=== PATIENT | male | born 1960 | race Caucasian/White ===

== ENCOUNTER 2018-04-09 15:41 | Emergency (ER) | payer BC ==
--- NOTE | 2018-04-09 16:10 | UC ---
Throat Pain/Nasal Art HPI - HPI Summary HPI Summary: 57 yo male presents with sore throat, sinus pain/pressure/congestion, and feeling feverish for the last 4 days. He says that he has a history of strep throat and this feels very similar, but then he developed sinus symptoms shortly after. [place] feverish, but has not taken his temperature. Has been taking theraflu and tylenol OTC with little relief. Denies cough, SOB, rash, n/ v. - History of Current Complaint Stated Complaint: SORE THROAT Time Seen by Provider: 04/09/18 16:10 Hx Obtained From: Patient Onset/Duration: Sudden Onset Severity: Mild Pain Intensity: 3 Pain Scale Used: 0-10 Numeric - Allergies/Home Medications Allergies/Adverse Reactions: Allergies Allergy/AdvReac Type Severity Reaction Status Date / Time gluten Allergy Rash Verified 04/09/18 16:22 lactose Allergy Diarrhea Verified 04/09/18 16:22 Home Medications: Home Medications Acetaminophen [Non-Aspirin] 650 mg PO Q8HR PRN 04/09/18 [History Confirmed 04/09] Diphenhydra/Phenyleph/Acetamin [Theraflu Expressmax Cold Nt Lq] 245.5 ml PO Q12HR PRN 04/09/18 [History Confirmed 04/09/18] PMH/Surg Hx/FS Hx/Imm Hx Psychological History: Bipolar Disorder - Surgical History Surgical History: Yes Surgery Procedure, Year, and Place: HERNIA REPAIR 2013 to right groin. MELANOMA REMOVED ON FACE 2000 - Family History Known Family History: Positive: None - Social History Occupation: Employed Full-time Lives: With Family Alcohol Use: Occasionally Alcohol Amount: 2 beers on a Sunday night Substance Use Type: None Smoking Status (MU): Never Smoked Tobacco - Immunization History Most Recent Influenza Vaccination: has not had Most Recent Tetanus Shot: Patient does not get this shot Most Recent Pneumonia Vaccination: denies Review of Systems All Other Systems Reviewed And Are Negative: Yes Constitutional: Positive: Negative Skin: Positive: Negative Eyes: Positive: Negative ENT: Positive: Sore Throat, Nasal Discharge, Sinus Congestion, Sinus Pain/ Tenderness Respiratory: Positive: Negative Cardiovascular: Positive: Negative Gastrointestinal: Positive: Negative Neurovascular: Positive: Negative Neurological: Positive: Negative Psychological: Positive: Negative Physical Exam - Summary Physical Exam Summary: GENERAL: NAD. WDWN. No pain distress. SKIN: No rashes, sores, lesions, or open wounds. HEENT: Head: AT/NC Eyes: EOM intact. Conjunctiva clear without inflammation or discharge. Ears: Hearing grossly normal. TMs intact, no bulging, erythema, or edema. Nose: Nasal mucosa mildly swollen and erythematous without discharge. TTP maxillary and frontal sinus. Throat: Posterior oropharynx with mild erythema. No exudates or tonsillar enlargement. Uvula midline. NECK: Supple. Nontender. No lymphadenopathy. CHEST: CTAB. No r/r/w. No accessory muscle use. Breathing comfortably and in no distress. CV: RRR. Without m/r/g. Pulses intact. NEURO: Alert. PSYCH: Age appropriate behavior. Triage Information Reviewed: Yes Vital Signs: Vital Signs: Temp Pulse Resp BP Pulse Ox 99.8 F 99 18 128/88 99 04/09/18 16:21 04/09/18 16:21 04/09/18 16:21 04/09/18 16:21 04/09/18 16:21 Laboratory Tests 04/09/18 16:25 Group A Strep Rapid Negative Vital Signs Reviewed: Yes Throat Pain/Nasal Course/Dx - Course Course Of Treatment: Discussed viral vs bacterial. Pt wishes to be on antibiotics at this time. - Differential Dx/Diagnosis Provider Diagnosis: Sinusitis Discharge - Sign-Out/Discharge Documenting (check all that apply): Patient Departure All imaging exams completed and their final reports reviewed: No Studies - Discharge Plan Condition: Stable Disposition: HOME Prescriptions: Amoxicillin PO (*) [Amoxicillin 875 MG (*)] 875 mg PO BID #14 tab Patient Education Materials: Sinusitis (ED) Referrals: Veto Wallace MD [Medical Doctor] - Additional Instructions: If you develop a fever, shortness of breath, chest pain, new or worsening symptoms - please call your PCP or go to the ED. - Billing Disposition and Condition Condition: STABLE Disposition: Home
[2018-04-09 16:30] VITALS: BP 128/88
== END 2018-04-09 17:00 | disposition home or self-care (01) ==
LOC: UCEAST 15:41
DX: J32.9 Chronic sinusitis, unspecified (principal)
CPT/HCPCS: 87651; 99202; G0463

== ENCOUNTER 2021-01-20 13:29 | Observation (INO) ==
[~2021-01-20 13:29] MED LIST: Acetaminophen IV 1 GM/100ML 100 ML IV ONE; Buffered Lidocaine 1% SYRIN 1 ml INTRADERM ONE; Bupivacaine 0.5% SDV PF 30ML VIAL ONE; Dexamethasone IV 4 MG/ML VIAL 1 ml VIAL ONE; HYDROmorphone 1 MG/1 ML SYRINGE ONE; Lactated Ringers 1000 ml BAG 1,000 ML IV SCH; Lidocaine 1% MPF 5 ML VIAL ONE; Lidocaine 2% PF 5 ML VIAL ONE; Midazolam 2 mg/2 ml VIAL 1 mg/ml 2 ml VIAL (2 mg) ONE; Phenylephrine IV 10 MG/ML 1 ml VIAL ONE; Propofol 10 MG/ML 20 ML BTL ONE; ROPIVACAINE 5 MG/ML 30 ML BTL (0.5%) ONE; Rocuronium 50 mg VIAL 10 mg/ml 5 ml VIAL (50 mg) ONE; ceFAZolin 2 GM PREMIX 2 GM/50 ML BAG ONE; fentaNYL 250 mcg/5 ml 50 MCG/ML 5 ml VIAL (250 MCG) ONE
[2021-01-20] MEDS ORDERED: Ondansetron 4 mg VIAL 2 MG/ML 2 ml VIAL ONE (13:42)
[2021-01-20] MEDS ORDERED: Dexamethasone IV 4 MG/ML VIAL 1 ml VIAL ONE (13:42)
[2021-01-20] MEDS ORDERED: Ondansetron 4 mg VIAL 2 MG/ML 2 ml VIAL IV PRN ×2 (14:02→15:47)
[2021-01-20] MEDS ORDERED: Ondansetron ODT 4 mg TAB 4 MG TAB PO PRN (14:02)
[2021-01-20] MEDS ORDERED: diPHENhydraMINE IV 50 MG/ML 1 ml VIAL (BENADRYL) IV PRN ×2 (14:02→15:47)
[2021-01-20] MEDS ORDERED: Morphine 2 MG/ML SYRINGE IV PRN (14:02)
[2021-01-20] MEDS ORDERED: Lactulose 30 ml UDC PO PRN (14:02)
[2021-01-20] MEDS ORDERED: Magnesium Hydroxide LIQ 30 ML UDC PO PRN (14:02)
[2021-01-20] MEDS ORDERED: diPHENhydraMINE 25 mg TAB PO PRN (14:02)
[2021-01-20] MEDS ORDERED: Naloxone 0.4 mg VIAL 0.4 mg/ml 1 ml VIAL IV PRN (15:47)
[2021-01-20] MEDS ORDERED: DiMENhydriNATE IV 50 mg/ml 1 ml VIAL IV PUSH PRN (15:47)
[2021-01-20] MEDS ORDERED: HYDROmorphone 1 MG/1 ML SYRINGE ONE (15:52)
[2021-01-20] MEDS: HYDROmorphone 1 MG/1 ML SYRINGE IV PRN ×4 (15:54→16:21)
[2021-01-20] MEDS: Lactated Ringers 1000 ml BAG 1,000 ML IV SCH (16:50)
[2021-01-20] MEDS: Magnesium Hydroxide LIQ 30 ML UDC PO SCH (19:58)
[2021-01-20] MEDS: ceFAZolin 1 GM ADVAN 1 GM in NS 0.9% 50 ML 50 ML IVPB SCH (20:01)
[2021-01-21] MEDS: ceFAZolin 1 GM ADVAN 1 GM in NS 0.9% 50 ML 50 ML IVPB SCH ×2 (03:19→12:02)
[2021-01-21] MEDS: Lactated Ringers 1000 ml BAG 1,000 ML IV SCH (03:19)
[2021-01-21 06:30] LABS: Hematocrit 32 % (42-52); Hemoglobin 10.7 g/dL (14.0-18.0); Mean Platelet Volume 10.3 fL (7.4-10.4); Platelet Count 155 10^3/uL (150-450)
[2021-01-21 06:47] LABS: Calcium 8.5 mg/dL (8.6-10.3); Potassium 4.1 mmol/L (3.5-5.0); eGFR CKD-EPI 100.1 (>60)
[2021-01-21] MEDS: Magnesium Hydroxide LIQ 30 ML UDC PO SCH (08:04)
[2021-01-21] MEDS ORDERED: Vitamin THERAPEUTIC TAB PO SCH (09:00)
[2021-01-21 10:31] LABS: INR 1.13 (0.86-1.15)
[2021-01-21 12:52] VITALS: BP 114/61
[2021-01-21 17:21] LABS: Hepatitis C Antibody Negative (Negative)
== END 2021-01-21 13:20 | disposition home or self-care (01) ==
LOC: OR 13:29 → SSU 13:29
PROVIDERS: ADMIT Orthopaedic Surgery Adult Reconstructive Orthopaedic Surgery; ATTEND Orthopaedic Surgery Adult Reconstructive Orthopaedic Surgery